=== PATIENT | female | born 1985 | race Caucasian/White ===

== ENCOUNTER → 2020-09-06 07:38 | Outpatient (CLI) | payer BC ==
[2020-09-06 09:45] LABS: T4 THYROXIN - FREE 1.35 ng/dL (0.76-1.46); THYROID STIMULATING HORMONE 3.33 uIU/mL (0.36-3.74)
== END | disposition home or self-care (01) ==
LOC: D.HCCECHO 07:38
PROVIDERS: ATTEND Internal Medicine Cardiovascular Disease
DX: R07.9 Chest pain, unspecified (principal)